=== PATIENT | female | born 1975 | race Caucasian/White ===

== ENCOUNTER 2019-07-29 19:23 | Emergency (ER) | payer SELFPAY ==
[2019-07-29 19:41] VITALS: BP 131/77
--- NOTE | 2019-07-29 19:49 | ER Document Report ---
HPI - HPI Time Seen by Provider: 07/29/19 19:41 Notes: Patient is a 44-year-old female with no significant past medical history presents complaining of left wrist pain/proximal dorsal hand pain status post FOOSH injury about 4 hours ago. Patient states that [place] when she lost balance and fell with her hand outstretched. Patient states that she has had pain since then and some mild swelling to her wrist. Movement makes the pain worse. She did not hit her head or lose conscious. Denies any headache, fever, head injury, neck pain, changes in vision/speech/mentation/hearing, URI, sore throat, chest pain, palpitations, syncope, cough, shortness of breath, wheeze, dyspnea, abdominal pain, nausea/vomiting/diarrhea, urinary retention, dysuria, hematuria, loss of control of bowel or bladder, numbness/tingling, saddle anesthesia, muscle paralysis, or rash. 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 - ROS Systems Reviewed and Negative: Yes All other systems reviewed and negative - REPRODUCTIVE Reproductive: DENIES: : Past Medical History - Social History Smoking Status: Unknown if Ever Smoked Family History: Reviewed & Not Pertinent - Past Medical History Cardiac Medical History: Denies: Hx Coronary Artery Disease, Hx Heart Attack, Hx Hypertension Pulmonary Medical History: Reports: Hx Bronchitis Denies: Hx Asthma Neurological Medical History: Reports: Hx Migraine. Denies: Hx Cerebrovascular Accident, Hx Seizures Endocrine Medical History: Denies: Hx Diabetes Mellitus Type 1, Hx Diabetes Mellitus Type 2 Renal/ Medical History: Denies: Hx Peritoneal Dialysis GI Medical History: Reports: Hx Ulcer - hx of aug 2010, no meds. Denies: Hx Hepatitis, Hx Hiatal Hernia Musculoskeletal Medical History: Reports Hx Arthritis, Reports Hx Fibromyalgia Psychiatric Medical History: Reports: Hx Anxiety, Hx Attention Deficit Hyperactivity Disorder Infectious Medical History: Denies: Hx Hepatitis Past Surgical History: Reports: Hx Oral Surgery, Hx Tubal Ligation. Denies: Hx Hysterectomy, Hx Mastectomy, Hx Open Heart Surgery, Hx Pacemaker - Immunizations Immunizations up to date: Yes Hx Diphtheria, Pertussis, Tetanus Vaccination: Yes Vertical Provider Document - CONSTITUTIONAL Agree With Documented VS: Yes Notes: PHYSICAL EXAMINATION: GENERAL: Well-appearing, well-nourished and in no acute distress. HEAD: Atraumatic, normocephalic. NECK: Normal range of motion, supple without lymphadenopathy. No midline tenderness. LUNGS: Breath sounds clear to auscultation bilaterally and equal. No wheezes rales or rhonchi. HEART: Regular rate and rhythm without murmurs, rubs, gallops. Musculoskeletal: Lt hand/wrist: + mild wrist swelling. No erythema, warmth, ecchymosis, deformity noted. N/V intact distal. FROM to passive/active at the wrist. Strength 4+/5 to window/distribution clerk. + scaphoid tenderness. + tenderness distal wrist and dorsal prox hand. Gamekeeper negative. Extremities: No cyanosis, clubbing, or edema b/l. Peripheral pulses 2+. Capillary refill less than 3 seconds. NEUROLOGICAL: Normal speech, normal gait. Normal sensory, motor exams otherwise unremarkable PSYCH: Normal mood, normal affect. SKIN: see above. No rash - INFECTION CONTROL TRAVEL OUTSIDE OF THE [place] IN LAST 30 DAYS: No Course - Re-evaluation Re-evalutation: 07/29/19 Patient is an afebrile, well-hydrated, 44-year-old female who presents with left thumb pain and buckle fracture left wrist with tenderness at the scaphoid without radiographic evidence of fracture at the scaphoid. Vitals are otherwise acceptable without significant tachycardia, tachypnea, or hypoxia. PE is othe rwise unremarkable for any neurovascular compromise, obvious tendon/leg rupture, dislocation, septic joint. See XR. Volar with thumb spica placed. Low suspicion for any other systemic or emergent condition at this time. Patient to follow-up with PCM/orthopedics next week. Return to the ED with any other worsening/concerning symptoms. Patient is in agreement. - Vital Signs Vital signs: Temp Pulse Resp BP Pulse Ox 97.7 F 91 20 131/77 H 96 07/29/19 19:27 07/29/19 19:27 07/29/19 19:27 07/29/19 19:27 07/29/19 19:27 Procedures - Immobilization Left Wrist Thumb Pre-Proc Neuro Vasc Exam: Normal Immobilizer type: Volar splint - with thumb spica Performed by: PCT Post-Proc Neuro Vasc Exam: Normal, Unchanged from pre-exam Discharge - Discharge Clinical Impression: Left hand pain Buckle fracture of distal end of left radius Qualifiers: Encounter type: initial encounter Fracture type: closed Qualified Code(s): S52.522A - Torus fracture of lower end of left radius, initial encounter for closed fracture Condition: Stable Disposition: HOME, SELF-CARE Additional Instructions: Rest, Ice, Compression, Elevation Use splint as directed Tylenol/ibuprofen as needed F/u with your PCP in 3-5 days for a recheck Call orthopedics to schedule an appointment for further evaluation and management Return to the ED with any worsening symptoms and/or development of fever, headache, chest pain, palpitations, syncope, shortness of breath, trouble breathing, abdominal pain, n/v/d, muscle weakness/paralysis, numbness/tingling, swelling, redness, or other worsening symptoms that are concerning to you. Prescriptions: Ibuprofen [Motrin 800 mg Tablet] 800 mg PO Q8H PRN #15 tab PRN Reason: Forms: Elevated Blood Pressure Referrals: MAICOL FANG JR, DO [ACTIVE PROVISIONAL STAFF] - Follow up in 3-5 days
--- NOTE | 2019-07-29 20:02 | RADIOLOGY REPORT (SQ) ---
EXAM DESCRIPTION: WRIST LEFT 3 VIEWS COMPLETED DATE/TIME: 07/29/2019 7:52 pm REASON FOR STUDY: left wrist pain s/p FOOSH injury COMPARISON: None. EXAM PARAMETERS: NUMBER OF VIEWS: Three views. TECHNIQUE: AP, lateral and oblique radiographic images acquired of the left wrist. LIMITATIONS: None. FINDINGS: MINERALIZATION: Normal. BONES: 3 mm cortical buckle fracture is suggested on the lateral projection the distal radial metaphy sis. No other fracture identified. No dislocation. JOINTS: No effusion. SOFT TISSUES: Mild soft tissue swelling. No radiopaque foreign body. OTHER: No other significant finding. IMPRESSION: 3 mm cortical buckle fracture is suggested on the lateral projection the distal radial m etaphysis. TECHNICAL DOCUMENTATION: JOB ID: [id number] [place]-72 2010 [employer]- All Rights Reserved Reading location - IP/workstation name: [email or web address]
[2019-07-29] MEDS ORDERED: HYDROCODONE/ACETAMINOPHEN 5-325 MG (6 TAB/ER DISP) PO PRN (20:12)
== END 2019-07-29 20:44 | disposition home or self-care (01) ==
LOC: ER 19:23
DX: S52.522A Torus fracture of lower end of left radius, initial encounter for closed fracture (principal); V00.121A Fall from non-in-line roller-skates, initial encounter; Y93.51 Activity, roller skating (inline) and skateboarding; Y92.838 Other recreation area as the place of occurrence of the external cause
CPT/HCPCS: 99283